=== PATIENT | female | born 1995 | race African-American/Black ===

== ENCOUNTER 2021-08-22 07:52 | Emergency (ER) | payer OTHER ==
[~2021-08-22] VITALS: Ht 175.3 cm; Wt 111.8 kg
[2021-08-22] MEDS ORDERED: DOXYCYCLINE MO100 MG PO (09:02)
== END 2021-08-22 09:16 | disposition home or self-care (01) ==
LOC: FSED 08:07
DX: L02.213 Cutaneous abscess of chest wall (principal)
CPT/HCPCS: 81025; 99282

== ENCOUNTER 2021-09-13 07:51 | Emergency (ER) | payer OTHER ==
[~2021-09-13] VITALS: Ht 175.3 cm; Wt 112.9 kg
[~2021-09-13 07:51] MED LIST: DOXYCYCLINE MO100 MG PO
[2021-09-13] MEDS ORDERED: KETOROLAC TROMETHAMINE 60 MG/2 ML VIAL IM ONE (09:00)
[2021-09-13] MEDS ORDERED: KETOROLAC TROMETHAMINE 60 MG/2 ML VIAL ONE (09:35)
[2021-09-13] MEDS ORDERED: FIORICET 50-301 EACH PO (11:09)
[2021-09-13 11:22] VITALS: BP 128/72
== END 2021-09-13 11:25 | disposition home or self-care (01) ==
LOC: FSED 08:49
DX: S00.83XA Contusion of other part of head, initial encounter (principal); R51.9 Headache, unspecified; Y04.0XXA Assault by unarmed brawl or fight, initial encounter; Y92.89 Other specified places as the place of occurrence of the external cause
CPT/HCPCS: 70450; 81003; 81025; 99283; J1885